=== PATIENT | female | born 1965 | race Two or more races ===

== ENCOUNTER 2018-11-15 04:19 | Emergency (ER) | payer MEDICAID, OTHER ==
[~2018-11-15] VITALS: Ht 160 cm; Wt 79.4 kg
[~2018-11-15 04:19] MED LIST: LORA1TAB PO; MECL-102 PO; ONDA4TAB8 SL
--- NOTE | 2018-11-15 04:31 | NUR ---
DR. WADE AT BEDSIDE FOR MSE.
--- NOTE | 2018-11-15 04:35 | NUR ---
CALLED X-RAY FOR US.
[2018-11-15 05:00] LABS: BASOPHILS # (AUTO) 0.1 K/uL (0.0-8.0); BASOPHILS % (AUTO) 0.9 % (0.0-2.0); EOSINOPHILS # (AUTO) 0.2 K/uL (0.0-0.7); EOSINOPHILS % (AUTO) 1.9 % (0.0-7.0); HEMATOCRIT 40.9 % (31.2-41.9); HEMOGLOBIN 13.9 g/dL (10.9-14.3); LYMPHOCYTES # (AUTO) 4.1 K/uL (20.0-40.0); MEAN CORPUSCULAR HEMOGLOBIN 30.2 uug (24.7-32.8); MEAN CORPUSCULAR HGB CONC 34 g/dL (32.3-35.6); MEAN CORPUSCULAR VOLUME 88.6 fL (75.5-95.3); MONOCYTES # (AUTO) 0.8 K/uL (2.0-10.0); MONOCYTES % (AUTO) 6.9 % (0.0-11.0); NEUTROPHILS # (AUTO) 6.2 K/uL (1.8-8.9); NEUTROPHILS % (AUTO) 54.3 % (38.5-71.5); PLATELET COUNT (AUTO) 296 K/uL (179-408); RED BLOOD CELL COUNT(AUTO) 4.61 MIL/uL (3.63-4.92); WHITE BLOOD COUNT (AUTO) 11.4 K/uL (3.8-11.8)
[2018-11-15 05:04] LABS: POTASSIUM 3.9 mmol/L (3.5-5.1)
[2018-11-15 05:10] LABS: BILIRUBIN,DIRECT 0.1 mg/dL (0.0-0.2); BILIRUBIN,TOTAL 0.3 mg/dL (0.2-1.0); TOTAL PROTEIN, SERUM 7.6 g/dL (6.4-8.2)
[2018-11-15] MEDS ORDERED: LIDOCAINE VISCUS 2% 15 ML UDC MM ONE (05:45)
[2018-11-15] MEDS ORDERED: ACETAMINOPHEN 325 MG TABLET PO ONE (05:45)
[2018-11-15] MEDS ORDERED: PANTOPRAZOLE SODIUM 40 MG TABLET.DR PO ONE ×2 (05:45→05:50)
[2018-11-15] MEDS ORDERED: ACETAMINOPHEN 325 MG TABLET ONE (05:49)
[2018-11-15] MEDS ORDERED: LIDOCAINE VISCUS 2% 15 ML UDC ONE ×2 (05:51→05:52)
[2018-11-15 06:19] VITALS: BP 122/81
--- NOTE | 2018-11-15 06:19 | NUR ---
Patient discharged to home in stable conditon. Written and verbal after care instructions given. Patient verbalizes understanding of instructions. Pt left ER in stable gait with family. No acute distress noted. All belongings w pt. VSS.
== END 2018-11-15 06:20 | disposition home or self-care (01) ==
LOC: ER 04:23
DX: R10.13 Epigastric pain (principal); F17.290 Nicotine dependence, other tobacco product, uncomplicated; Z86.73 Personal history of transient ischemic attack (TIA), and cerebral infarction without residual deficits; Z79.899 Other long term (current) drug therapy
CPT/HCPCS: 36415; 76700; 83690; 85025; A4663